=== PATIENT | male | born 1995 | race Caucasian/White ===

== ENCOUNTER 2019-11-12 12:55 | Outpatient (CLI) | payer BC, SELFPAY ==
--- NOTE | ~2019-11-12 | CT_ITS ---
EXAMINATION: CT abdomen pelvis wo con DATE: 11/12/2019 13:24 INDICATION: Upper abdominal pain and headaches TECHNIQUE: Computed tomography (CT) of the abdomen and pelvis was performed without intravenous contr ast. The dose-length product (DLP) was 465.74 mGy-cm. Automated exposure control and iterative recons truction technique were employed. COMPARISON: None FINDINGS: The lung bases are clear. The heart size is normal. The liver, spleen, pancreas, gallbladde r, and adrenal glands are normal. The kidneys are unremarkable. No pathologically enlarged abdominal or pelvic lymph nodes are identified. There is no free intraperitoneal gas or evidence of bowel obstr uction. There is an increase in number of nonpathologically enlarged mesenteric lymph nodes, likely r eactive. The appendix is normal. IMPRESSION: 1. No CT correlate for the patient's symptoms. Reviewed, dictated and finalized at location A.
== END 2019-11-12 12:56 | disposition home or self-care (01) ==
LOC: ANHIMG 12:59
PROVIDERS: PCP Nurse Practitioner Family; Visit Provider Nurse Practitioner Family
DX: R10.84 Generalized abdominal pain (principal); R31.9 Hematuria, unspecified
CPT/HCPCS: 74176